=== PATIENT | female | born 1945 | race Caucasian/White ===

== ENCOUNTER 2016-11-28 09:59 | Emergency (ER) | payer MEDICARE, BC ==
[~2016-11-28] VITALS: Ht 154.9 cm; Wt 76.3 kg
[~2016-11-28 09:59] MED LIST: ALBU6.7H INH; CALC500T19 PO; LEVO100T4 PO; LISI-360 PO; OMEP20TA39 PO; OXYB5TAB PO; PRAV20 PO; VITA20002 PO
[2016-11-28 10:05] VITALS: BP 136/76; PULSE 70; RESP 18; TEMP 97.7; O2SAT 97
[2016-11-28] MEDS ORDERED: SODIUM CHLOR 0.9% 1000 ML INJ 1,000 ML IV SCH (10:15)
[2016-11-28] MEDS ORDERED: LORazepam 2 MG/ML VIAL IV PUSH ONE (10:15)
[2016-11-28] MEDS ORDERED: CALC600T12 PO (10:19)
[2016-11-28] MEDS ORDERED: OXYB10TA PO (10:19)
[2016-11-28] MEDS ORDERED: PRAV20TA2 PO (10:19)
[2016-11-28] MEDS ORDERED: LISI10TA3 PO (10:19)
[2016-11-28] MEDS ORDERED: LEVO100T5 PO (10:19)
[2016-11-28] MEDS ORDERED: OMEP20TA PO (10:19)
[2016-11-28] MEDS ORDERED: VITA200012 PO (10:19)
[2016-11-28] MEDS ORDERED: BENA25TA3 PO (10:27)
[2016-11-28] MEDS ORDERED: PRED-503 PO (10:27)
--- NOTE | 2016-11-28 10:27 | PD ---
HPI Chief Complaint: Allergic/Adverse Reaction Time Seen by Provider: 10:02 Travel History International Travel<30 days: No Contact w/Intl Traveler<30days: No Traveled to known affect area: No History of Present Illness HPI There is a 71-year-old woman who presents to the emergency department after developing an allergic reaction following IV contrast dye at [facility]. She's been having low hemoglobin levels and so was getting a study done to look at her abdomen and pelvis. After getting this study done with IV contrast she developed hives shortness of breath. She was given Solu-Medrol IV , subcutaneous epi, and Benadryl. She was brought by EMS. On EMS arrival she was feeling improved. She still states she feels jittery. Breathing is improved at this time. She's had CT imaging in the past with similar contrast but never had a reaction like this. No other complaints. History Past Medical History Narrative Medical Art's thyroiditis/hypothyroidism Hypertension on hyperlipidemia History of melanoma with multiple local resections Tetanus Vaccination: > 5 Years Influenza Vaccination: Yes Dilation and Curettage (D&C): Yes (X's 2) Social History Alcohol Use: Yes (Occ.) Tobacco Use: No Allergies-Medications (Allergen,Severity, Reaction): Coded Allergies: Contrast Media (Verified Allergy, Severe, Hives, SOB, 11/28/16) Penicillin (Unverified Allergy, Severe, Hives, 11/28/16) Zostavax (Verified Allergy, Severe, Localized reaction, nausea, 11/28/16) Actonel (Unverified Adverse Reaction, Severe, Nausea/Vomiting, 11/28/16) Bactrim (Unverified Adverse Reaction, Severe, Nausea/Vomiting, 11/28/16) Sulfa (Unverified Adverse Reaction, Severe, Nausea/Vomiting, 11/28/16) Risedronate (Unverified Adverse Reaction, Unknown, Nausea/Vomiting, ) Reported Meds & Prescriptions Reported Meds & Active Scripts Active Benadryl Allergy (Diphenhydramine HCl) 25 Mg Tab 25 Mg PO Q6H PRN Deltasone (Prednisone) 20 Mg Tab 20 Mg PO BID 3 Days Reported Calcium (Calcium Carbonate) 1,500 Mg Tab 1,500 Mg PO DAILY 1,500 mg calcium carbonate (600 mg elemental calcium) Vitamin D3 (Cholecalciferol) 2,000 Unit Tab 4,000 Units PO DAILY Oxybutynin ER 24 HR (Oxybutynin Chloride) 10 Mg Tab 10 Mg PO DAILY Omeprazole 20 Mg Tab 20 Mg PO DIRECTED Pravastatin 20 Mg Tab 20 Mg PO DAILY Lisinopril 10 Mg Tab 10 Mg PO DAILY Levothyroxine (Levothyroxine Sodium) 100 Mcg Tab 100 Mcg PO DAILY Review of Systems Except as stated in HPI: all other systems reviewed are Neg Physical Exam Narrative GENERAL: 71-year-old woman, anxious appearing. SKIN: Warm and dry. Multiple areas of hives. HEAD: Atraumatic. Normocephalic. EYES: Pupils equal and round. No scleral icterus. No injection or drainage. ENT: No nasal bleeding or discharge. Mucous membranes pink and moist. NECK: Trachea midline. No JVD. CARDIOVASCULAR: Regular rate and rhythm. No murmur appreciated. RESPIRATORY: Mild tachypnea and anxiety. No wheezing. Good air movement. GASTROINTESTINAL: Abdomen soft, non-tender, nondistended. Hepatic and splenic margins not palpable. MUSCULOSKELETAL: No obvious deformities. No edema. NEUROLOGICAL: Awake and alert. No obvious cranial nerve deficits. Motor grossly within normal limits. Normal speech. PSYCHIATRIC: Anxious. Data Data Last Documented VS Vital Signs Date Time Temp Pulse Resp B/P Pulse Ox O2 Delivery O2 Flow Rate FiO2 11/28/16 13:05 85 14 169/80 100 Room Air 11/28/16 10:05 97.7 Orders Iv Access Insert/Monitor (11/28/16 10:02) Electrocardiogram (11/28/16 ) Sodium Chlor 0.9% 1000 Ml Inj (Ns 1000 M (11/28/16 10:15) Lorazepam Inj (Ativan Inj) (11/28/16 10:15) Diet Heart Healthy (11/28/16 Lunch) MDM Medical Decision Making Medical Screen Exam Complete: Yes Emergency Medical Condition: Yes Interpretation(s) My review of EKG: Normal sinus rhythm at a rate of 77, normal axis, normal intervals, no definite evidence of acute ischemia. Differential Diagnosis Allergic reaction, anaphylaxis, urticaria, other Narrative Course Medical decision-making new Is a 71-year-old woman presents emergent department following an anaphylactic reaction to IV contrast dye. She'll be monitored for 4 hours in the emergency department. She'll be discharged with steroids and antihistamines. Told to avoid IV contrast time the future. Diagnosis Primary Impression: Anaphylaxis Qualified Code: T78.2XXA - Anaphylaxis, initial encounter Additional Instructions: Take prednisone twice daily starting tonight. Take Benadryl as needed for hives or itching. Follow-up with your primary doctor once 2 days. Return immediately to the emergency department for any new or worsening symptoms. Med/Other Pt SpecificInfo: Prescription(s) given Scripts Diphenhydramine (Benadryl Allergy)25 Mg Tab25 Mg PO Q6H PRN (ALLERGIES) #6 TAB Ref 0 Prov:Wayne Abdi MD 11/28/16 Prednisone (Deltasone)20 Mg Tab20 Mg PO BID 3 Days Prov:Wayne Abdi MD 11/28/16 Disposition: 01 DISCHARGE HOME Condition: Stable Wayne Abdi MD Nov 28, 2016 10:27
[2016-11-28 11:05] VITALS: BP 140/84; PULSE 76; RESP 16; O2SAT 94
[2016-11-28 13:05] VITALS: BP 169/80; PULSE 85; RESP 14; O2SAT 100
--- NOTE | 2016-11-28 21:44 | EKG ---
Date Performed: 11/28/2016 Time Performed: 10:00:26 PTAGE: 71 years EKG: BASELINE ARTIFACT PRESENT. Sinus rhythm Septal ST changes are nonspecific Low QRS voltages in precordial leads Borderline ECG NO SIGNIFICANT CHANGE FROM PRIOR ELECTROCARDIOGRAM. PREVIOUS TRACING : 11/07/2014 02.06 DOCTOR: Narendra Huber Interpretating Date/Time 11/28/2016 21:43:04
== END 2016-11-28 14:00 | disposition home or self-care (01) ==
LOC: PHED 09:59
DX: T88.6XXA Anaphylactic reaction due to adverse effect of correct drug or medicament properly administered, initial encounter (principal); R06.02 Shortness of breath; L50.0 Allergic urticaria; T50.8X5A Adverse effect of diagnostic agents, initial encounter; Y92.538 Other ambulatory health services establishments as the place of occurrence of the external cause
CPT/HCPCS: 93005; 96374; 99284; J2060; J7030